=== PATIENT | male | born 2000 | race Caucasian/White ===

== ENCOUNTER 2025-04-19 08:36 | Outpatient (CLI) | payer OTHER | END 2025-04-19 08:37 | disposition home or self-care (01) | LOC: CSHSLEEP 08:36 | PROVIDERS: ATTEND Family Medicine | DX: G47.33 Obstructive sleep apnea (adult) (pediatric) (principal); R53.83 Other fatigue; F41.9 Anxiety disorder, unspecified | CPT/HCPCS: 95800 ==